=== PATIENT | female | born 1980 | race Caucasian/White ===

== ENCOUNTER 2017-01-13 14:31 | Inpatient (IN) | payer OTHER ==
[~2017-01-13] VITALS: Ht 172.7 cm; Wt 53.7 kg
--- NOTE | 2017-01-14 15:53 | HP ---
ADMIT: 01/13/2017 RM/LOC: 427 [facility] MR#: [id number] [facility] [address] [place] [id number] [place] [id number] History and Physical SEX: F AGE: 36 : 1980 DATE OF SERVICE: CHIEF COMPLAINT: Headache. HISTORY OF PRESENT ILLNESS: The patient is a very pleasant 36-year-old female with a history of intractable migraines. Really only has come on over the last few years, it sounds like. Has been getting a lot worse recently. The patient states that earlier today, she started with abrupt onset of severe headache, right-sided, nonradiating. Was seen at an outside ER, got some treatments. Presented to this ER with continued treatments. She has a longstanding history with Neurology. Narcotics, NSAIDs, DHE all did not help. Still severe headache. No numbness or weakness in extremities. No fevers or chills. Prior to this had been in her usual state of health. Frequent migraines. She has been keeping up on her medications. 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 Does have some caffeine intake. She does drink coffee. PAST MEDICAL HISTORY: 1. Frequent recurrent migraines. 2. Panic attacks. 3. Anxiety. PAST SURGICAL HISTORY: History of salpingectomy. MEDICATIONS: She is on: 1. Valium p.r.n. 2. Decadron p.r.n. 3. BuSpar. 4. Alprazolam. 5. Frova p.r.n. 6. Toradol p.r.n. 7. Depo-Provera. 8. Zofran p.r.n. 9. Sumatriptan subcutaneous injections. 10.Topamax ER. 11.Verapamil. ALLERGIES: IV COMPAZINE HAS CAUSED HER TO "GO CRAZY." REGLAN AND HYDROCODONE MAKE HER ILL. FAMILY HISTORY: Significant for hypertension, hyperlipidemia, stroke in grandmother. SOCIAL HISTORY: Tobacco abuse none. Has three children with the youngest being 10. Works as a nurse here at the hospital. IMAGING DATA: MRI of her brain essentially negative. LABORATORY DATA: Hemoglobin 16.3, platelet count 307, creatinine 0.74. ADMIT: 01/13/2017 RM/LOC: 427 [facility] MR#: [id number] 2620 [facility] [address] [place], [place] [address] [address] [place] [phone] History and Physical SEX: F AGE: 36 : 1980 PHYSICAL EXAMINATION: VITAL SIGNS: Blood pressure 125/77, pulse 106, respiratory rate 16, temperature 98.9. GENERAL: She is alert and oriented x3. No acute distress, but seems uncomfortable in bed. Definitely not her normal pleasant bubbly self. HEENT: Normocephalic, atraumatic. Pupils are equal bilaterally. No icterus. Dry mucous membranes. LUNGS: Clear to auscultation bilaterally. No wheezes, rales, or rhonchi. HEART: Regular rate and rhythm. No murmurs, rubs, or gallops. ABDOMEN: Soft, nontender, and nondistended. Bowel sounds present. EXTREMITIES: No cyanosis, clubbing, or edema. MUSCULOSKELETAL: 5/5 strength in all 4 extremities. Repositions herself in bed reasonably well. NEUROLOGICAL: No focal deficits noted. Cranial nerves II through XII are grossly intact. ASSESSMENT: Status migrainosus. PLAN: At this point in time, she has been seen by Neurology who knows her well. They have a plan for some Depakote IV, some hydroxyzine, Ambien, fluid, and magnesium. She has had benefit from Compazine in the past and we will do this scheduled orally as well for her nausea. Try to get her some rest, see if we can break this migraine. Otherwise, it does not seem like she has really anything historically that has routinely helped and anymore one than the other it sounds like. Want to see if this regimen works for her overnight. The patient is agreeable to plan. She definitely is not her normal pleasant self, clearly does not appear comfortable. We will see if we can get her more comfortable. Abran Talamantes MD/ phuong JOB #: [id number] CC: Abran Talamantes MD, Attending Physician Abran Talamantes MD, Family Physician
[2017-01-15] MEDS ORDERED: FROVA2.5 MG PO (11:11)
[2017-01-15] MEDS ORDERED: ISOPTIN DPS120 MG PO (11:11)
[2017-01-15] MEDS ORDERED: VALIUM-DPS5 MG PO (11:11)
[2017-01-15] MEDS ORDERED: XANAX DPS0.25 MG PO (11:11)
[2017-01-15] MEDS ORDERED: TOPAMAX200 MG PO (11:11)
[2017-01-15] MEDS ORDERED: MAG-OX400 MG PO (11:11)
[2017-01-15] MEDS ORDERED: AMBIEN DPS10 MG PO (11:12)
[2017-01-15] MEDS ORDERED: ATARAX DPS50 MG PO (11:12)
[2017-01-15] MEDS ORDERED: COMPAZINE10 MG PO (11:12)
--- NOTE | 2017-01-18 23:43 | ER ---
ADMIT: 01/13/2017 RM/LOC: 427 [facility] MR#: [id number] [address] [address] [place] [address] Emergency Room Report SEX: F AGE: 36 : 1980 DATE: 01/13/2017 TIME: 1431 hours. Please refer to my T-sheet for complete H and P. Briefly, the patient is a 36- year-old who was transferred down here from [place] for status migrainosus where she was treated up there, not improved. She was given sound like Demerol, Zofran, and Toradol, no improvement of her headache. She has chronic migraines all the time. They did a CT scan and it was negative. They did a CBC, essentially normal. Chemistries essentially normal. CRP negative. She comes in here saying she is still having significant pain. Dr. Davalos, our neurologist requested an MRI of her brain. In our Emergency Department, she received another L of normal saline, DHEA 1 mg, IV Decadron 10 IV, Ativan 1 mg IV, Zofran 4 IV, still having some symptoms. I talked to Dr. Talamantes on for [place], we will admit to the hospital. The MRI of her brain was negative. Dr. Davalos was aware and will be involved in her care. ASSESSMENT: Status migrainosus. PLAN: Admit to the hospital. Blanco Valentin MD/ phuong JOB #: [id number] CC: Abran Talamantes MD, Attending Physician Abran Talamantes MD, Family Physician
--- NOTE | 2017-01-25 14:03 | DS ---
ADMIT: 01/13/2017 RM/LOC: 427 [facility] MR#: [id number] 2620 [facility] [address] [place] [phone] [place] [id number] Discharge Summary SEX: F AGE: 36 : 1980 ADMISSION DATE: 01/13/2017 DISCHARGE DATE: 01/14/2017 CONSULTATIONS: Neurology. PROCEDURES: She underwent injection of the cervical neck trigger point injection by Dr. Umberto Davalos MD. REASON FOR ADMISSION: The patient is a very pleasant 36-year-old female, who presented initially to outside hospital with migraine headache not resolved with medication. This was severe and worsening. Transferred here for further evaluation and MRI. HOSPITAL COURSE: The patient was admitted. Underwent MRI. It was normal. Was seen by Neurology. They did multiple steps to try to get her migraines better. Ambien, Depakote infusion, hydroxyzine, IV fluids, steroids, DHE. She did have some improvement, although not complete resolution at time of discharge. She felt eager for discharge however. These arrangements were made. She will have follow up as an outpatient. DISCHARGE MEDICATIONS: She will essentially be her home medications other than Ambien will be added. Abran Talamantes MD/ vdg JOB #: [id number] CC: Abran Talamantes MD, Attending Physician Abran Talamantes MD, Family Physician
--- NOTE | 2017-01-27 15:53 | CO ---
ADMIT: 01/13/2017 RM/LOC: 427 [facility] MR#: [id number] [address] [address] [place] [address] Consultation SEX: F AGE: 36 : 1980 DATE OF CONSULTATION: 01/14/2017 ATTENDING PHYSICIAN: Abran Talamantes MD CONSULTING PHYSICIAN: Umberto Davalos MD REASON FOR CONSULTATION: Status migrainosus. HISTORY OF PRESENT ILLNESS: The patient is a 36-year-old woman who is known to me from clinic encounter for chronic intractable migraines. The patient was seen in the clinic on 28 December by me and her medications were changed slightly to allow better prevention of headaches as well as new abortive medications tried. Unfortunately, the patient developed massive headaches today, which were associated with inability to talk/aphasia. The patient was in the outside ER where CT scan was done, labs were fairly unremarkable. After communication with me, a decision was made to transfer her to [facility] to obtain the MRI to rule out any abnormality causing her language deficit before it is being attributed to the migraine itself. The patient, while she was in the ER, was uncomfortable with going home because she was still sick, strongly photophobic, therefore Neurology was consulted. Of note, the language improved to her baseline. PAST MEDICAL HISTORY: Significant for history of chronic intractable migraines, abnormal flushing, and sweating. FAMILY HISTORY: No pertinent family history. SOCIAL HISTORY: Never a smoker. ALLERGIES: COMPAZINE, HYDROCODONE, AND METOCLOPRAMIDE. CURRENT MEDICATIONS: 1. Prochlorperazine p.r.n. suppository. 2. Topiramate ER. 3. Zomig p.r.n. 4. Alprazolam. 5. Dexamethasone p.r.n. 6. Diazepam. 7. Frovatriptan p.r.n. 8. Verapamil 120 a day. 9. Zofran 4 mg p.r.n. REVIEW OF SYSTEMS: All systems reviewed, negative except as per HPI and following headache, inability to talk, transient. PSYCHIATRY: Anxiety. PHYSICAL EXAMINATION: VITAL SIGNS: Temperature 97.2, heart rate 72, respirations 15, blood pressure 108/67, and saturation 100% on room air. GENERAL: The patient is in moderate discomfort secondary to headache and ADMIT: 01/13/2017 RM/LOC: 427 [facility] MR#: [id number] [address] [address] [address] [place] [phone] Consultation SEX: F AGE: 36 : 1980 photophobia. She is nauseated. HEAD: Normocephalic and atraumatic. NECK: Supple. CHEST: Normal respiratory effort. CARDIOVASCULAR: Regular rate and rhythm. EXTREMITIES: No clubbing or cyanosis. NEUROLOGICAL EXAM: The patient is awake, alert, appropriately oriented. Speech and language normal. Cranial nerves; visual fishman are intact. Pupils equal, reactive. Extraocular muscles intact. Facial sensation normal. Face is symmetric. Hearing to voice intact. Uvula midline. Palatal arch is symmetric. Shoulder shrug symmetric. Tongue midline, fairly moveable. Motor examination reveals full strength throughout. Coordination is normal. Normal tone for motor. Sensory nonlateralizing to touch. Reflexes normal, brisk, symmetric without pathological reflexes observed. Gait deferred secondary to discomfort. LABORATORY DATA: Reviewed and negative. MRI reviewed in person, normal study. PROCEDURE: The occipital nerve block was performed during the time of the consultation. Location, bilateral. Indication, cervicogenic migraine/status migrainosus. Consent obtained from the patient who agrees to procedure and understands risks and benefits, which were explained in detail. DESCRIPTION: Occipital region was prepared with alcohol pad. Location of the landmarks and occipital artery were palpated, 5 mL of 1% lidocaine was used for infiltration of the areas of greater and lesser occipital nerves bilaterally. 2 mL were infiltrated to area of greater occipital nerve on the left side and 1 mL to the area of the lesser occipital nerve on the left side. Remainder of the fluid was divided equally in between greater and lesser occipital nerve on left side. The pain level reduced from 6 to 3 within 5 minutes of injection treatment. The patient tolerated the procedure well without any discomfort. There were no complications nor blood loss. ASSESSMENT: Status migrainosus, cervicogenic migraine, aphasic episode ADMIT: 01/13/2017 RM/LOC: 427 [facility] MR#: [id number] [address] [place] [id number] [facility] [phone] Consultation SEX: F AGE: 36 : 1980 related to migraine with normal imaging. The patient was admitted to floor for continued treatment. RECOMMENDATIONS: Normal saline at 100 mL/hour, magnesium sulfate 1 g in 50 mL bag infused over 30 minutes q.8 hours x3. Valproic acid 500 mg IV now and repeat in 1 hour and then 500 mg IV q.8 hours x3, hydroxyzine 50 mg 1-2 tabs q.6 hours scheduled for sedation and Ambien 10 mg at bedtime p.r.n. I will follow the patient tomorrow and disposition will be determined then pending improvement. Thank you very much for this interesting consultation. We will follow. Umberto Davalos MD/ phuong JOB #: [id number] CC: Abran Talamantes MD, Attending Physician Abran Talamantes MD, Family Physician
== END 2017-01-14 18:07 | disposition home or self-care (01) | DRG 103 ==
LOC: ER 14:31 → 4PCU 17:40
PROVIDERS: ADMIT Internal Medicine
PROC: 3E0T3BZ Introduction of Anesthetic Agent into Peripheral Nerves and Plexi, Percutaneous Approach (ICD-10-PCS; principal; 2017-01-14)
DX: G43.901 Migraine, unspecified, not intractable, with status migrainosus (principal); R47.01 Aphasia; F41.0 Panic disorder [episodic paroxysmal anxiety]; F41.9 Anxiety disorder, unspecified